=== PATIENT | female | born 1990 | race Caucasian/White ===

== ENCOUNTER 2016-12-23 06:52 | Emergency (ER) | payer SELFPAY ==
[~2016-12-23] VITALS: Ht 170.2 cm; Wt 70.5 kg
[2016-12-23 06:54] VITALS: BP 129/76; TEMP 98.7
[2016-12-23] MEDS ORDERED: PEN-VEE K500 MG PO (07:19)
[2016-12-23 07:46] VITALS: PULSE 71
== END 2016-12-23 07:47 | disposition home or self-care (01) ==
LOC: COL.ER 06:52
DX: K04.7 Periapical abscess without sinus (principal); K08.89 Other specified disorders of teeth and supporting structures; K03.81 Cracked tooth; F17.210 Nicotine dependence, cigarettes, uncomplicated

== ENCOUNTER 2017-02-10 04:03 | Emergency (ER) | payer SELFPAY ==
[~2017-02-10] VITALS: Ht 170.2 cm; Wt 68.2 kg
[~2017-02-10 04:03] MED LIST: PEN-VEE K500 MG PO
[2017-02-10 04:05] VITALS: TEMP 97.8
[2017-02-10] MEDS ORDERED: PEN-VEE K500 MG PO (04:59)
[2017-02-10] MEDS ORDERED: NORCO 325 MG-51 TAB PO (04:59)
[2017-02-10] MEDS ORDERED: ULTRAM 50MG TAB50 MG PO (04:59)
[2017-02-10 05:10] VITALS: BP 118/70; PULSE 80
== END 2017-02-10 05:13 | disposition home or self-care (01) ==
LOC: COL.ER 04:03
DX: K04.7 Periapical abscess without sinus (principal)